=== PATIENT | female | born 1980 | race Caucasian/White ===

== ENCOUNTER 2017-08-29 08:45 | Emergency (ER) | payer BC ==
[2017-08-29] MEDS ORDERED: 0.9 % SODIUM CHLORIDE 1,000 ML IV ONE (08:49)
[2017-08-29] MEDS ORDERED: 0.9 % SODIUM CHLORIDE 1,000 ML IV SCH ×2 (09:00)
[2017-08-29] MEDS ORDERED: 0.9 % SODIUM CHLORIDE 500 ML IV ONE (09:04)
--- NOTE | 2017-08-29 09:06 | ED Physician Documentation ---
General Adult - HISTORIAN Historian: patient - HPI Chief Complaint: GI Bleed Additional Information: Patient was found in her in her driveway EMt. Patient states that she tripped taking the trash out. She denies any LOC. Was seen by a neighbor and EMS was called and patient was transported to our facility. In transport patient was reported to have a blood pressure in the 90s systolic and intoxicated. When patient arrived she sated that she was feeling faintly but answering questions. She was awake. First BP obtained in the ED showed a systolic in the 70 with a pulse of 118. Patient then vomited about 200cc of blood. Patient states that she has some disease related to her alcoholism but is not sure what it is. Paramedics states that she has Hep C but the patient denies that. She does not know if she has varicoceles or not. Patient states that other then her alcoholism and associated problems with that she has not other medical problems. Further information from her was obtained. He states that she has end stage liver disease. She has some cirrhosis with ascites and esophageal varicoceles. Has had varicocele banding done several times. Patient denies any pain in her neck or back. No extremity pain. Patient denies any headache, numbness/weakness. Timing: still present Last known Well Code/Unknown Code: Unknown - ROS CONST: no problems. denies: fever, chills EYES/ENT: none - PAST HX Past History: other (alcoholism with ) Other History: hepatitis (alcoholic cirrhosis) Surgeries/Procedures: other (varicocele banding) - SOCIAL HX Smoking History: less than 1 pack/day Alcohol Use: heavy Drug Use: none - FAMILY HX Family History: Yes - REVIEWED ASSESSMENTS Nursing Assessment Reviewed: Yes Vitals Reviewed: Yes Progress - Progress Progress: Two IVs were established and patient was started on normal saline bolus with both IVs. Attempted a third IV line but was not able to be established. Interoseous was placed in the right tibia. Uncrossed matched blood was started. While in the ED patient had emeisis of about 500 cc of blood. C collar was applied even though Helicopter transport was initiated but had to be aborted due to weather. Patient's blood pressure did improve to the 90's with pulse remaining in the 120s. Patient was prepared for intubation. Drugs of etomidate and roxicuronium were drawn up. I though I give the instruction to give the etomidate but it did not get communicated well to the nurse and it was not given. Patient was paralysed with roxicuronium and intubated with #7 ET. Breath sounds were equal bilaterally, CO2 monitor placed with good wave form. Chest x- ray showed the tube to be about 2-3 cmm above delmar. Post intubation SAO2 was 95-100%, pulse rate did increase to 150-160s. Patient was transported to the ED of the [facility]. At the time of transfer patient had one unit of blood and was started on a second, She had recieved about 2.3 literes of normal saline. She had two IV and an interossous IV. ED Results Lab/Radiology - Orders Orders: ED Orders Category Date Time Status Administer PreMed .PRN Care 08/29/17 08:57 Active Blood [Administer blood products] NOW Care 08/29/17 08:56 Active CBC/PLATELET/DIFF Routine Lab 08/29/17 08:55 Received CMP Routine Lab 08/29/17 08:55 Received DRUG SCREEN URINE MEDICAL ONLY Routine Lab 08/29/17 Ordered PT-INR Routine Lab 08/29/17 08:55 Received 0.9 % Sodium Chloride [Normal Saline] 1,000 ml Med 08/29/17 09:00 Ordered IV .Q1H 0.9 % Sodium Chloride [Normal Saline] 1,000 ml Med 08/29/17 09:00 Ordered IV .Q1H 0.9 % Sodium Chloride [Normal Saline] 1,000 ml Med 08/29/17 08:49 Discontinued IV .STK-MED General Adult Physical Exam - PHYSICAL EXAM GENERAL APPEARANCE: Patient answers questions EENT: eye inspection normal, ENT inspection normal, pharynx normal, other ( [place] has a hematoma to the left frontal parietal area, mild ecchymosis to the left jaw.) NECK: normal inspection, supple (no tenderness to palpation) RESPIRATORY: no resp distress, chest non-tender, breath sounds normal. No: wheezes, rales, rhonchi CVS: heart sounds normal, equal pulses (faint), tachycardia ABDOMEN: soft, hepatomegaly, distended (appears to have ascites) SKIN: warm/dry, pallor EXTREMITIES: non-tender, normal range of motion, no evidence of injury NEURO: oriented X3, CN's nml as tested, sensation nml. No: cognition normal ( mildly confused at times, GCS 15/15) Discharge Clincal Impression: Upper gastrointestinal hemorrhage, Hemorrhagic shock Referrals: Primary Doctor,No [Primary Care Provider] - 2 Days Condition: Critical Disposition: 02 XFER SHT-TRM HOSP Decision to Admit: [id number] Date of Decison to Admit: 08/29/17 Decision Time: 10:00
[2017-08-29 09:13] LABS: BASOPHILS % 0.5 (0.0-1.5); EOSINOPHILS % 0.6 % (0.0-6.8); MEAN CORPUSCULAR HEMOGLOBIN 28.3 pg (28.0-34.0); MEAN CORPUSCULAR VOLUME 91.5 fl (80.0-100.0); MONOCYTES % 5.7 % (0.0-11.0); NEUTROPHILS # 7.4 # k/uL (1.4-7.7)
[2017-08-29 09:15] LABS: eGFR (African) > 60; eGFR (Non-African) > 60
--- NOTE | 2017-08-29 13:12 | Diagnostic Imaging Report ---
GURPREET CABRERA [facility] [address] [facility] [address] [place], [place]. [address] Report Submission Date: Aug 29, 2017 10:06:51 AM PUFF IRONER Patient Study Name: ALLAN CARPENTER Date: Aug 29, 2017 9:56:30 AM PUFF IRONER Modality Type: CR Gender: F Description: CHEST : 84 Institution: [facility] Physician: GURPREET CABRERA Examination: Portable chest History: Tube placement. Comparison exam: None provided Findings: Single view of the chest demonstrates a normal cardiac and mediastinal silhouette. Hypoventilated inspiratory effort. Lung thrasher without focal infiltrate. No blunting of the costophrenic margins. Endotracheal tube: tip 3 cm above the delmar. Osseous structures are appropriate for age. Impression: No acute pulmonary process. Endotracheal tube: tip 3 cm above the delmar. Electronically signed on Aug 29, 2017 10:06:51 AM PUFF IRONER by: Jakob JUNIOR
[2017-08-29 13:50] VITALS: BP 70/38
== END 2017-08-29 10:30 | disposition short-term general hospital (02) ==
LOC: ED 08:45
DX: K92.2 Gastrointestinal hemorrhage, unspecified (principal); R57.9 Shock, unspecified
CPT/HCPCS: 71010; 80053; 80320; 85025; 85610; J7030; J7060; L0120; 31500; 36680; 96360; 99285; G0480; S1016